=== PATIENT | female | born 1955 | race Caucasian/White ===

== ENCOUNTER 2021-04-09 22:12 | Emergency (ER) | payer OTHER ==
[~2021-04-09] VITALS: Ht 160 cm; Wt 70.3 kg
[2021-04-09] MEDS ORDERED: SYNTHROID137 MCG (22:31)
== END 2021-04-09 23:16 | disposition home or self-care (01) ==
LOC: ER 22:12
DX: S01.80XA Unspecified open wound of other part of head, initial encounter (principal); Y92.019 Unspecified place in single-family (private) house as the place of occurrence of the external cause; W22.8XXA Striking against or struck by other objects, initial encounter; I10 Essential (primary) hypertension

== ENCOUNTER 2021-04-16 12:09 | Emergency (ER) | payer OTHER ==
[~2021-04-16] VITALS: Ht 160 cm; Wt 70.3 kg
[~2021-04-16 12:09] MED LIST: SYNTHROID137 MCG
== END 2021-04-16 15:03 | disposition home or self-care (01) ==
LOC: ER 12:09
DX: Z48.02 Encounter for removal of sutures (principal)

== ENCOUNTER 2021-11-24 06:12 | Outpatient (CLI) | payer OTHER | END 2021-11-24 06:17 | disposition home or self-care (01) | LOC: LAB 06:12 | PROVIDERS: ATTEND Internal Medicine | DX: E11.65 Type 2 diabetes mellitus with hyperglycemia (principal); E03.8 Other specified hypothyroidism; E55.9 Vitamin D deficiency, unspecified; E11.9 Type 2 diabetes mellitus without complications; I10 Essential (primary) hypertension ==

== ENCOUNTER 2022-01-18 11:38 | Outpatient (CLI) | payer OTHER | END 2022-01-18 11:48 | disposition home or self-care (01) | LOC: RAD 11:38 | PROVIDERS: ATTEND Physical Medicine & Rehabilitation | DX: M65.811 Other synovitis and tenosynovitis, right shoulder (principal); M24.511 Contracture, right shoulder ==